=== PATIENT | female | born 1960 | race African-American/Black ===

== ENCOUNTER → 2018-03-18 | Outpatient (CLI) | payer OTHER ==
--- NOTE | 2018-03-18 16:43 | Diagnostic Imaging Report ---
EXAM: HIDA Scan INDICATION: Chronic intermittent abdominal pain x 3 years; cholelithiasis Report: Following the administration of 7.5 mCi of Tc-99m mebrofenin, dynamic images of the abdomen in the anterior projection were obtained through 950 minutes. Additional static images were obtained at 2, 2.5, 2.75 and 3 hours. Perfusion of the liver is normal. Extraction of tracer from the blood pool by the liver parenchyma is normal. Tracer appears promptly with in the biliary tract. Tracer is seen in the small bowel by 20 minutes post injection of the radiotracer. The gallbladder does not fill during the initial 95-minute dynamic sequence and does not fill through 3 hours. Impression: 1. Absence of filling of the gallbladder through 3 hours post administration of the radiotracer supports the clinical diagnosis of chronic and/or acute cholecystitis. Signed by: Dr. Maite Silva M.D. on 03/18/2018 4:39 PM
== END ==
LOC: NM 08:08
PROVIDERS: ATTEND Internal Medicine Gastroenterology
DX: K80.20 Calculus of gallbladder without cholecystitis without obstruction (principal)
CPT/HCPCS: 78226; A9537